=== PATIENT | female | born 1980 | race American Indian/Alaskan Native ===

== ENCOUNTER 2023-07-25 02:22 | Inpatient (IN) | payer MEDICAID, OTHER ==
[~2023-07-25] VITALS: Ht 180.3 cm; Wt 106.0 kg
[2023-07-25] MEDS ORDERED: HYDROmorphone HCL 2 MG/ML VL/or syr IV ONE (02:30)
[2023-07-25] MEDS ORDERED: ONDANSETRON HCL 4 MG/2 ML VIAL IV ONE (02:30)
[2023-07-25 02:49] LABS: Basophils # (auto) 0 10 ^3/uL (0-0.2); Eosinophils # (auto) 0 10 ^3/uL (0-0.8); Hemoglobin 9.2 g/dL (12.2-16.2); Monocytes # (auto) 0.8 10 ^3/uL (0-1.3)
[2023-07-25 02:51] LABS: Basophils % (auto) 0.7 % (0.0-2.0); Eosinophils % (auto) 0.5 % (0.0-7.0); Hematocrit 30.1 % (36.0-46.0); Lymphocytes # (auto) 1.7 10 ^3/uL (0.4-5.4); Lymphocytes % (auto) 24.6 % (10.0-50.0); Mean Corpuscular Hemoglobin 21.1 pg (28.0-32.0); Mean Corpuscular Hgb Conc. 30.5 g/dL (32.0-36.0); Mean Corpuscular Volume 69.1 fL (80.0-100.0); Monocytes % (auto) 10.8 % (0.0-12.0); Neutrophils # (auto) 4.5 10 ^3/uL (1.6-8.6); Neutrophils % (auto) 63.4 % (37.0-80.0); Nucleated Red Blood Cells % 0.1 %; Red Blood Cells 4.36 10^6/uL (4.0-5.20)
[2023-07-25] MEDS ORDERED: IODIXANOL 320MG/ML 100ML BTL IV ONE (02:54)
[2023-07-25 03:05] LABS: INR 1.13 (0.9-1.15); Prothrombin Time 11.8 sec (9.3-11.8)
[2023-07-25 03:09] LABS: Alanine Aminotransferase 65 U/L (7-40); Albumin 4.5 g/dL (3.2-4.8); Alkaline Phosphatase 142 U/L (46-116); Anion Gap 9 (5-15); Aspartate Aminotransferase 45 U/L (13-40); BUN/Creatinine Ratio 11.4 (10.0-20.0); Bilirubin, Total 1.3 mg/dL (0.2-1.0); Blood Urea Nitrogen 8 mg/dL (9-23); Calcium 9.4 mg/dL (8.7-10.4); Carbon Dioxide 21 mmol/L (20-30); Chloride 107 mmol/L (98-107); Glucose 110 mg/dL (74-106); Lipase 61 U/L (12-53); Potassium 3.2 mmol/L (3.5-5.1); Sodium 137 mmol/L (136-145); Total Protein 8.4 g/dL (5.7-8.2)
[2023-07-25 03:30] LABS: Anisocytosis Moderate; Hypochromia Marked; Platelet Estimate Adequate
[2023-07-25 03:31] LABS: Ovalocytes FEW; Stomatocytes Few
[2023-07-25] MEDS ORDERED: diphenhdrAMINE HCL 50 MG/1 ML VL IV ONE (04:30)
[2023-07-25 04:48] LABS: Urine Bacteria NONE SEEN /hpf (None Seen); Urine Blood 3+ /uL (Negative); Urine Clarity Clear (Clear); Urine Color Yellow (Yellow); Urine Mucus FEW (None Seen); Urine Protein, UAD Negative (Negative); Urine Specific Gravity 1.013 (1.001-1.035); Urine WBC 3 /hpf (0 - 5); Urine pH 5.5 (5.0-8.0)
[2023-07-25 04:56] LABS: Amphetamine Screen, Urine Pos (NEGATIVE); Benzodiazephine Screen, Urine Neg (NEGATIVE)
[2023-07-25 04:57] LABS: Barbiturate Scree,Urine Neg (NEGATIVE); Cannabinoid Screen, Urine Pos (NEGATIVE); Cocaine Screen, Urine Neg (NEGATIVE); Opiate Scree,Urine Neg (NEGATIVE); Phencyclidine Screen, Urine Neg (NEGATIVE)
[2023-07-25 06:45] VITALS: PULSE 63; RESP 20; O2SAT 95
[2023-07-25 08:26] VITALS: PULSE 55; RESP 20; O2SAT 95
[2023-07-25] MEDS ORDERED: POTASSIUM CHL 20MEQ/100ML 100 ML IV ONE (09:45)
[2023-07-25] MEDS ORDERED: INFLUENZA QUAD 2023-2024 0.5 ML SYRG IM ONE (10:15)
[2023-07-25] MEDS ORDERED: MORPHINE SULFATE INJ 2 MG/ml SYRG IV PRN (10:15)
[2023-07-25] MEDS ORDERED: KETOROLAC TROMETH 30 MG/ML 1ML VIAL IV PRN (10:15)
[2023-07-25] MEDS ORDERED: ONDANSETRON HCL 4 MG/2 ML VIAL IV PRN (10:15)
[2023-07-25] MEDS ORDERED: SODIUM CHLORIDE 0.9% 1,000 ML IV ONE (10:15)
[2023-07-25] MEDS ORDERED: NITROGLYCERIN 0.4 MG SL TAB SL PRN (10:15)
[2023-07-25 11:00] LABS: Magnesium 1.9 mg/dL (1.6-2.6)
[2023-07-25 16:53] VITALS: BP 117/60; PULSE 70; RESP 20; TEMP 97.7; O2SAT 98
[2023-07-25 17:09] VITALS: BP 117/60; PULSE 70; RESP 20; TEMP 97.7; O2SAT 98
[2023-07-25] MEDS ORDERED: LORazepam 2MG/ML-1ML VIAL IV PRN (18:30)
[2023-07-25] MEDS ORDERED: ERGOCALCIFEROL 50,000 UNIT(1.25MG) CAP PO SCH (18:45)
[2023-07-25] MEDS: SODIUM CHLORIDE 0.9% 1,000 ML IV SCH (19:01)
[2023-07-25 20:00] VITALS: PULSE 68
[2023-07-25] MEDS: KETOROLAC TROMETH 30 MG/ML 1ML VIAL IV PRN (20:27)
[2023-07-25 22:00] VITALS: BP 115/50; PULSE 56; RESP 19; TEMP 98.2; O2SAT 96
[2023-07-25] MEDS: PANTOPRAZOLE 40 MG/10 ML VIAL INJ IV SCH (22:00)
[2023-07-25] MEDS: FOLIC ACID 1 MG, MULTIPLE VITAMIN 10 ML, MAGNESIUM SULF SDV 50% 8 MEQ, THIAMINE INJ 100... INJ SCH ×5 (22:54)
[2023-07-26] VITALS (7 sets, daily range): BP systolic 102–145; BP diastolic 55–71; PULSE 58–98; RESP 16–19; TEMP 97.2–99; O2SAT 96–97
[2023-07-26 06:52] LABS: Basophils # (auto) 0 10 ^3/uL (0-0.2); Eosinophils # (auto) 0.1 10 ^3/uL (0-0.8); Hemoglobin 7.8 g/dL (12.2-16.2); Lymphocytes # (auto) 1.4 10 ^3/uL (0.4-5.4); Monocytes # (auto) 0.5 10 ^3/uL (0-1.3); Nucleated Red Blood Cells % 0.1 %; Red Blood Cells 3.71 10^6/uL (4.0-5.20); White Blood Cell 4.1 10^3/uL (4.4-10.8)
[2023-07-26 06:54] LABS: Basophils % (auto) 0.5 % (0.0-2.0); Eosinophils % (auto) 1.5 % (0.0-7.0); Hematocrit 25.7 % (36.0-46.0); Lymphocytes % (auto) 33.8 % (10.0-50.0); Mean Corpuscular Hgb Conc. 30.3 g/dL (32.0-36.0); Mean Corpuscular Volume 69.3 fL (80.0-100.0); Monocytes % (auto) 12.5 % (0.0-12.0); Neutrophils # (auto) 2.1 10 ^3/uL (1.6-8.6); Neutrophils % (auto) 51.7 % (37.0-80.0); Red Cell Distribution Width 23.9 % (11.8-14.3)
[2023-07-26 07:11] LABS: Alanine Aminotransferase 53 U/L (7-40); Alkaline Phosphatase 126 U/L (46-116); Anion Gap 6 (5-15); Aspartate Aminotransferase 39 U/L (13-40); BUN/Creatinine Ratio 15.8 (10.0-20.0); Bilirubin, Total 1.3 mg/dL (0.2-1.0); Blood Urea Nitrogen 9 mg/dL (9-23); Calcium 8.7 mg/dL (8.7-10.4); Carbon Dioxide 25 mmol/L (20-30); Chloride 106 mmol/L (98-107); Glucose 89 mg/dL (74-106); Lipase 60 U/L (12-53); Sodium 137 mmol/L (136-145); Total Protein 7.3 g/dL (5.7-8.2)
[2023-07-26 07:12] LABS: % Iron Saturation 7.3 % (15-50)
[2023-07-26] MEDS ORDERED: POTASSIUM CHL 20MEQ/100ML 100 ML IV ONE (09:00)
[2023-07-26] MEDS ORDERED: SODIUM FERR GLUC 62.5MG/5ML 125 MG in SODIUM CHL 0.9% 100 ML IV ONE (09:00)
[2023-07-26] MEDS: SODIUM CHLORIDE 0.9% 1,000 ML IV SCH (09:52)
[2023-07-26] MEDS: KETOROLAC TROMETH 30 MG/ML 1ML VIAL IV PRN ×2 (09:53→21:25)
[2023-07-26] MEDS: PANTOPRAZOLE 40 MG/10 ML VIAL INJ IV SCH ×2 (09:54→21:24)
[2023-07-26] MEDS ORDERED: ENOXAPARIN SOD 30 MG/0.3 ML SYRINGE SC SCH (10:00)
[2023-07-26] MEDS: FOLIC ACID 1 MG, MULTIPLE VITAMIN 10 ML, MAGNESIUM SULF SDV 50% 8 MEQ, THIAMINE INJ 100... INJ SCH ×5 (14:30)
[2023-07-27 04:40] VITALS: BP_SYST 149; BP_SYST 93; BP_DIAS 50; BP_DIAS 71; PULSE 71; PULSE 80; RESP 14; RESP 16; TEMP 97.8; TEMP 99.1; O2SAT 100; O2SAT 97
[2023-07-27 06:40] LABS: Basophils # (auto) 0 10 ^3/uL (0-0.2); Eosinophils # (auto) 0 10 ^3/uL (0-0.8); Hemoglobin 7.8 g/dL (12.2-16.2); Lymphocytes # (auto) 1.3 10 ^3/uL (0.4-5.4); Mean Corpuscular Volume 70.1 fL (80.0-100.0); Monocytes # (auto) 0.5 10 ^3/uL (0-1.3); White Blood Cell 3.8 10^3/uL (4.4-10.8)
[2023-07-27 06:42] LABS: Basophils % (auto) 0.8 % (0.0-2.0); Eosinophils % (auto) 1.1 % (0.0-7.0); Hematocrit 25.7 % (36.0-46.0); Mean Corpuscular Hemoglobin 21.2 pg (28.0-32.0); Mean Corpuscular Hgb Conc. 30.3 g/dL (32.0-36.0); Monocytes % (auto) 12.5 % (0.0-12.0); Neutrophils % (auto) 52.6 % (37.0-80.0); Nucleated Red Blood Cells % 0.1 %; Red Blood Cells 3.67 10^6/uL (4.0-5.20)
[2023-07-27 06:59] LABS: Red Cell Distribution Width 23.7 % (11.8-14.3)
[2023-07-27 07:09] LABS: Alanine Aminotransferase 46 U/L (7-40); Albumin 3.7 g/dL (3.2-4.8); Alkaline Phosphatase 118 U/L (46-116); Anion Gap 6 (5-15); Aspartate Aminotransferase 34 U/L (13-40); BUN/Creatinine Ratio 8.8 (10.0-20.0); Bilirubin, Total 0.8 mg/dL (0.2-1.0); Blood Urea Nitrogen < 5 mg/dL (9-23); Calcium 8.7 mg/dL (8.7-10.4); Carbon Dioxide 24 mmol/L (20-30); Chloride 109 mmol/L (98-107); Glucose 92 mg/dL (74-106); Lipase 55 U/L (12-53); Potassium 3.4 mmol/L (3.5-5.1); Sodium 139 mmol/L (136-145); Total Protein 6.9 g/dL (5.7-8.2)
[2023-07-27 08:10] VITALS: BP 105/52; PULSE 70; PULSE 86; RESP 20; TEMP 98.3
[2023-07-27 09:11] VITALS: BP 105/52; PULSE 86; RESP 20; TEMP 98.3; O2SAT 94
[2023-07-27] MEDS: PANTOPRAZOLE 40 MG/10 ML VIAL INJ IV SCH (09:24)
[2023-07-27] MEDS: FOLIC ACID 1 MG, MULTIPLE VITAMIN 10 ML, MAGNESIUM SULF SDV 50% 8 MEQ, THIAMINE INJ 100... INJ SCH ×5 (12:33)
[2023-07-27 13:00] VITALS: BP 113/49; PULSE 66; RESP 20; TEMP 98.3; O2SAT 95
[2023-07-27] MEDS ORDERED: LIDOCAINE VISCOUS 2% 15ML UD ONE (14:49)
[2023-07-27] MEDS ORDERED: SODIUM CHLORIDE LOCK 10 ML ONE (14:49)
[2023-07-27] MEDS ORDERED: MIDAZOLAM HCL 5 MG/ML-1ML VIAL ONE (14:50)
[2023-07-27] MEDS ORDERED: diphenhdrAMINE HCL 50 MG/1 ML VL ONE (14:50)
[2023-07-27] MEDS ORDERED: fentaNYL CITRATE 100 MCG/2 ML VL ONE (14:50)
[2023-07-28] MEDS ORDERED: NITR-87 PO (09:44)
== END 2023-07-27 15:40 | disposition left against medical advice (07) | DRG 282 ==
LOC: EDBD 02:22 → ER 02:26 → TELE 10:19 → TELE-EAST 10:35
PROVIDERS: ADMIT Internal Medicine Geriatric Medicine; ATTEND Internal Medicine Geriatric Medicine
DX: K85.90 Acute pancreatitis without necrosis or infection, unspecified (principal); K70.30 Alcoholic cirrhosis of liver without ascites; E55.9 Vitamin D deficiency, unspecified; D50.9 Iron deficiency anemia, unspecified; F19.10 Other psychoactive substance abuse, uncomplicated; E87.6 Hypokalemia; I10 Essential (primary) hypertension; R74.01 Elevation of levels of liver transaminase levels; J45.909 Unspecified asthma, uncomplicated; Z83.3 Family history of diabetes mellitus; Z90.49 Acquired absence of other specified parts of digestive tract; Z88.1 Allergy status to other antibiotic agents; Z88.5 Allergy status to narcotic agent; Z53.29 Procedure and treatment not carried out because of patient's decision for other reasons
CPT/HCPCS: 36415; 71045; 74177; 80053; 80061; 80307; 80329; 81001; 82306; 82607; 83036; 83540; 83550; 83690; 83735; 84443; 84702; 85025; 85610; 87081; 93005; 93306; C9113; G0378; J1885; J2250; J2405; J3480; Q9967

== ENCOUNTER 2023-07-28 05:48 | Emergency (ER) | payer MEDICAID ==
[~2023-07-28] VITALS: Ht 167.6 cm; Wt 107.0 kg
[2023-07-28 06:56] LABS: Basophils # (auto) 0 10 ^3/uL (0-0.2); Basophils % (auto) 0.6 % (0.0-2.0); Eosinophils # (auto) 0 10 ^3/uL (0-0.8); Eosinophils % (auto) 0.3 % (0.0-7.0); Hematocrit 27.9 % (36.0-46.0); Hemoglobin 8.5 g/dL (12.2-16.2); Lymphocytes # (auto) 1.3 10 ^3/uL (0.4-5.4); Lymphocytes % (auto) 27.4 % (10.0-50.0); Mean Corpuscular Hemoglobin 21.5 pg (28.0-32.0); Mean Corpuscular Hgb Conc. 30.5 g/dL (32.0-36.0); Mean Corpuscular Volume 70.4 fL (80.0-100.0); Monocytes # (auto) 0.4 10 ^3/uL (0-1.3); Monocytes % (auto) 8.9 % (0.0-12.0); Neutrophils # (auto) 2.9 10 ^3/uL (1.6-8.6); Neutrophils % (auto) 62.8 % (37.0-80.0); Nucleated Red Blood Cells % 0.1 %; Red Blood Cells 3.96 10^6/uL (4.0-5.20); White Blood Cell 4.7 10^3/uL (4.4-10.8)
[2023-07-28 06:57] LABS: Red Cell Distribution Width 24.2 % (11.8-14.3)
[2023-07-28 07:10] LABS: Alanine Aminotransferase 52 U/L (7-40); Albumin 4.3 g/dL (3.2-4.8); Alkaline Phosphatase 127 U/L (46-116); Anion Gap 9 (5-15); Aspartate Aminotransferase 39 U/L (13-40); BUN/Creatinine Ratio 8.7 (10.0-20.0); Bilirubin, Total 0.8 mg/dL (0.2-1.0); Blood Urea Nitrogen 6 mg/dL (9-23); Calcium 9.2 mg/dL (8.5-10.1); Carbon Dioxide 24 mmol/L (20-30); Chloride 109 mmol/L (98-107); Glucose 91 mg/dL (74-106); Potassium 3.4 mmol/L (3.5-5.1); Sodium 142 mmol/L (136-145)
[2023-07-28 07:30] VITALS: BP 117/60; PULSE 84; RESP 18; TEMP 98.4; O2SAT 98
[2023-07-28 07:48] LABS: Blood Alcohol < 3.0 mg/dL (<10)
[2023-07-28 07:59] LABS: Urine Bacteria FEW /hpf (None Seen); Urine Blood 2+ /uL (Negative); Urine Clarity Clear (Clear); Urine Protein, UAD Negative (Negative); Urine Specific Gravity 1.004 (1.001-1.035); Urine Urobilinogen Normal (Negative); Urine WBC 2 /hpf (0 - 5); Urine pH 5.5 (5.0-8.0)
[2023-07-28 08:01] LABS: Urine Color STRAW (Yellow)
[2023-07-28 08:23] LABS: Amphetamine Screen, Urine Pos (NEGATIVE); Barbiturate Scree,Urine Neg (NEGATIVE); Benzodiazephine Screen, Urine Neg (NEGATIVE); Cocaine Screen, Urine Neg (NEGATIVE)
[2023-07-28 08:24] LABS: Cannabinoid Screen, Urine Neg (NEGATIVE); Opiate Scree,Urine Neg (NEGATIVE); Phencyclidine Screen, Urine Neg (NEGATIVE)
[2023-07-28 09:19] LABS: Lipase 64 U/L (12-53)
[2023-07-28] MEDS ORDERED: NITR-87 PO (09:44)
== END 2023-07-28 10:11 | disposition home or self-care (01) ==
LOC: ER 05:48
DX: K74.60 Unspecified cirrhosis of liver (principal); N39.0 Urinary tract infection, site not specified; D50.9 Iron deficiency anemia, unspecified; I10 Essential (primary) hypertension; E11.9 Type 2 diabetes mellitus without complications; F15.90 Other stimulant use, unspecified, uncomplicated; Z90.49 Acquired absence of other specified parts of digestive tract; Z88.8 Allergy status to other drugs, medicaments and biological substances; Z79.899 Other long term (current) drug therapy
CPT/HCPCS: 36415; 74176; 80053; 80307; 80320; 81001; 81025; 83690; 85025